=== PATIENT | male | born 1980 | race Caucasian/White ===

== ENCOUNTER 2024-09-28 10:41 | Day surgery (SDC) | payer OTHER ==
[2024-09-25 12:27] VITALS: BMI 25.7
[~2024-09-28 10:41] MED LIST: HYDROmorphone 0.5 MG/0.5 ML SYRINGE IVP PRN; LIDOCAINE 1% (10MG/ML) FOR IV START INTRADERMA PRN; TRANEXAMIC 1,000 MG/100ML-NACL 1,000 MG in SALINE 1 100ML.BAG IVPB PRN; fentaNYL (PF) 50 MCG/ML 2 ML AMP IVP PRN
[2024-09-28 11:27] VITALS: TEMP 97.5
[2024-09-28] MEDS: LACTATED RINGERS 1,000 ML IV ONE ×2 (11:32→14:00)
[2024-09-28] MEDS: LACTATED RINGERS 1,000 ML IV SCH (11:47)
[2024-09-28] MEDS: DEXAMETHASONE SOD PHOSPHATE 4 MG/ML 1 ML VIAL IV ONE (11:47)
[2024-09-28] MEDS: ONDANSETRON 4 MG/2 ML VIAL IVP ONE (11:47)
[2024-09-28] MEDS: fentaNYL (PF) 50 MCG/ML 2 ML AMP IVP ONE (12:25)
[2024-09-28] MEDS: MIDAZOLAM 2 MG/2 ML VIAL IV PRN (12:33)
--- NOTE | 2024-09-28 12:34 | P.ANPRN ---
Procedure Note - Anesthesia - Nerve Block Performed Right Supraclavicular Single Time Out Performed: Yes Date of Procedure: 09/28/24 Procedure Start Time: 12:15 Procedure Stop Time: 12:17 Location of Patient: PreOp Indication: Acute Post-Operative Pain, Analgesia, Requested by Surgeon Sedation Type: Sedate with meaningful contact maintained Preparation: Sterile Prep Position: Sitting Catheter: None Needle Types: Pajunk Needle Gauge: 21 Ultrasound used to visualize needle placement: Yes Ultrasound used to observe medication spread: Yes Injectate: 0.5% Ropivacaine (see comment for volume) (Ropiv 20ml+[id number]) Blood Aspirated: No Pain Paresthesia on Injection Noted: No Resistance on Injection: Normal Image Stored and Saved: Yes Events: Uneventful and Well Tolerated
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
[2024-09-28 15:54] VITALS: RESP 16
[2024-09-28 16:07] VITALS: BP 117/67; PULSE 65
== END 2024-09-28 16:31 | disposition home or self-care (01) ==
LOC: OR 10:41
PROVIDERS: ATTEND Orthopaedic Surgery
DX: S52.351A Displaced comminuted fracture of shaft of radius, right arm, initial encounter for closed fracture (principal); S52.221A Displaced transverse fracture of shaft of right ulna, initial encounter for closed fracture; Y93.55 Activity, bike riding; Z88.5 Allergy status to narcotic agent; Z79.899 Other long term (current) drug therapy
CPT/HCPCS: 25565; J2250; J1100; J0690; J2405; J3010